=== PATIENT | male | born 1985 | race Caucasian/White ===

== ENCOUNTER 2022-10-26 15:16 | Inpatient (IN) | payer SELFPAY ==
[2022-10-26 15:54] LABS: Absolute Lymphocytes (CBC) 0.9 K/uL (0.7-4.9); Hematocrit 43.6 % (39.6-49.0); Lymphocytes % 5.6 % (15.3-44.8); MCV 88.4 fL (80-100); MPV 7.5 fL (7.6-11.3); RBC Red Blood Cell Count 4.93 M/uL (4.33-5.43)
[2022-10-26] MEDS ORDERED: ACETAMINOPHEN 500 MG TAB ONE (16:01)
[2022-10-26] MEDS ORDERED: MORPHINE 4 MG/ML SYR ONE (16:01)
[2022-10-26] MEDS ORDERED: PIPERACIL/TAZO 3.375 GM VIAL IV ONE (16:02)
[2022-10-26] MEDS ORDERED: FAMOTIDINE 20 MG/2 ML VIAL IV ONE (16:02)
[2022-10-26] MEDS ORDERED: NA CHLORIDE 0.9% 100 ML ONE (16:02)
[2022-10-26] MEDS ORDERED: NA CHLORIDE 0.9% 1,000 ML ONE ×3 (16:02→19:48)
[2022-10-26] MEDS ORDERED: ONDANSETRON 4 MG/2 ML VIAL ONE ×2 (16:02→17:42)
[2022-10-26 16:10] LABS: Specific Gravity 1.025 (1.005-1.030); Urine Bacteria None Seen /HPF (<20); Urine Bilirubin NEGATIVE (Negative); Urine Blood 3+ (OVER) (Negative); Urine Clarity Extremely Turbid (Clear); Urine Color Yellow (Yellow); Urine Glucose NEGATIVE (Negative); Urine Mucus Slight /HPF (None Seen); Urine Protein 3+ (Negative); Urine Urobilinogen 1+ (Normal); Urine WBC Clump Rare /HPF (None Seen)
[2022-10-26 16:20] LABS: Albumin 3.5 g/dL (3.4-5.0); Potassium 3.7 mEq/L (3.5-5.1); Protein, Total 7.8 g/dL (6.4-8.2)
--- NOTE | 2022-10-26 16:22 | RAD REPORT ---
EXAM DESCRIPTION: CTAbdomen Pelvis W Contrast - 10/26/2022 4:04 pm CLINICAL HISTORY: Abdominal pain. ABD PAIN COMPARISON: No comparisons TECHNIQUE: Biphasic CT imaging of the abdomen and pelvis was performed with 100 ml non-ionic IV cont rast. All CT scans are performed using dose optimization technique as appropriate and may include automated exposure control or mA/KV adjustment according to patient size. FINDINGS: The lung bases are clear. The liver contains a 5-6 mm low-density lesion anterior right lobe. Mild nodular contour is present. Spleen, pancreas, adrenal glands and kidneys are within normal limits. No bowel obstruction, free air, free fluid or abscess. The appendix is enlarged to 17 mm with surrou nding inflammation. This is compatible with acute appendicitis. No evidence of significant lymphaden opathy. No suspicious bony findings. IMPRESSION: Acute appendicitis. Subtle nodular liver contour could indicate underlying parenchymal disease.
--- NOTE | 2022-10-26 16:40 | EDPHYS ---
Physician Documentation [facility] Name: Shaggy Colin Age: 36 yrs Sex: Male : 1985 Arrival Date: 10/26/2022 Time: 15:16 Bed 3 Private MD: BEBETO Physician Homar Russell HPI: 10/26 16:21 This 36 yrs old Male presents to ER via Ambulatory with complaints of dc Abdominal Pain, Nausea/Vomiting. 16:21 The patient presents to the emergency department with nausea, vomiting, that is dc continuous. Onset: The symptoms/episode began/occurred 4 day(s) ago. Possible causes: flare up of bowel problem. The symptoms are aggravated by movement, pressure. The symptoms are aggravated by. Associated signs and symptoms: Pertinent positives: abdominal pain. Severity of symptoms: At their worst the symptoms were moderate in the emergency department the symptoms are worse mildly. The patient has not experienced similar symptoms in the past. Historical: - Allergies: 15:26 No Known Allergies; aa5 - Home Meds: 15: None [Active]; aa5 - PMHx: 15: None; aa5 - PSHx: 15:26 None; aa5 - Immunization history:: Adult Immunizations unknown. - Social history:: Smoking status: Patient reports the use of cigarette tobacco products, smokes one pack cigarettes per day. ROS: 16:28 Eyes: Negative for injury, pain, redness, and discharge, ENT: Negative for injury, dc pain, and discharge, Neck: Negative for injury, pain, and swelling, Cardiovascular: Negative for chest pain, palpitations, and edema, Respiratory: Negative for shortness of breath, cough, wheezing, and pleuritic chest pain, Back: Negative for injury and pain, : Negative for injury, bleeding, discharge, and swelling, MS/Extremity: Negative for injury and deformity, Skin: Negative for injury, rash, and discoloration, Neuro: Negative for headache, weakness, numbness, tingling, and seizure, Psych: Negative for depression, anxiety, suicide ideation, homicidal ideation, and hallucinations, Allergy/Immunology: Negative for hives, rash, and allergies, Endocrine: Negative for neck swelling, polydipsia, polyuria, polyphagia, and marked weight changes, Hematologic/Lymphatic: Negative for swollen nodes, abnormal bleeding, and unusual bruising. 16:28 Constitutional: Positive for body aches, chills, fever. 16:28 Cardiovascular: Positive for palpitations. 16:28 Abdomen/GI: Positive for abdominal pain, nausea and vomiting, of the right upper quadrant, left upper quadrant, right lower quadrant and left lower quadrant. Exam: 16:35 Constitutional: This is a well developed, well nourished patient who is awake, alert, dc and in no acute distress. Head/Face: Normocephalic, atraumatic. Eyes: Pupils equal round and reactive to light, extra-ocular motions intact. Lids and lashes normal. Conjunctiva and sclera are non-icteric and not injected. Cornea within normal limits. Periorbital areas with no swelling, redness, or edema. ENT: Nares patent. No nasal discharge, no septal abnormalities noted. Tympanic membranes are normal and external auditory canals are clear. Oropharynx with no redness, swelling, or masses, exudates, or evidence of obstruction, uvula midline. Mucous membranes moist. Neck: Trachea midline, no thyromegaly or masses palpated, and no cervical lymphadenopathy. Supple, full range of motion without nuchal rigidity, or vertebral point tenderness. No Meningismus. Chest/axilla: Normal chest wall appearance and motion. Nontender with no deformity. No lesions are appreciated. Respiratory: Lungs have equal breath sounds bilaterally, clear to auscultation and percussion. No rales, rhonchi or wheezes noted. No increased work of breathing, no retractions or nasal flaring. Back: No spinal tenderness. No costovertebral tenderness. Full range of motion. Male : Normal genitalia with no discharge or lesions. Skin: Warm, dry with normal turgor. Normal color with no rashes, no lesions, and no evidence of cellulitis. MS/ Extremity: Pulses equal, no cyanosis. Neurovascular intact. Full, normal range of motion. Neuro: Awake and alert, GCS 15, oriented to person, place, time, and situation. Cranial nerves II-XII grossly intact. Motor strength 5/5 in all extremities. Sensory grossly intact. Cerebellar exam normal. Normal gait. Psych: Awake, alert, with orientation to person, place and time. Behavior, mood, and affect are within normal limits. 16:35 Cardiovascular: Rate: tachycardic, actual rate is 120 bpm, Rhythm: regular, Pulses: Pulses are 4+ in bilateral radial, brachial, femoral, popliteal, posterior tibial and and dorsalis pedis arteries.. Heart sounds: normal, Edema: is not appreciated, JVD: is not appreciated. 16:35 ECG was reviewed by the Attending Physician. Vital Signs: 15:26 BP 117 / 75; Pulse 120; Resp 28 S; Temp 101(O); Pulse Ox 98% on R/A; Weight 80.74 kg aa5 (R); Height 5 ft. 8 in. (R); 16:19 BP 106 / 66; Pulse 98; Resp 16; Pulse Ox 99% on R/A; db 17:18 BP 112 / 71; Pulse 92; Resp 18; Pulse Ox 98% ; ko1 15:26 Body Mass Index 27.06 (80.74 kg, 172.72 cm) aa5 MDM: 15:30 Patient medically screened. [facility] 16:29 Differential diagnosis: Nonspecific abd pain, pancreatitis, appendicitis, dc diverticulitis, viral gastroenteritis, gastroenteritis. Data reviewed: vital signs, nurses notes, lab test result(s), EKG, radiologic studies, CT scan. Consideration of Admission/Observation Patient was admitted/placed on observation. Escalation of care including admission/observation considered. I considered the following discharge prescriptions or medication management in the emergency department Medications were administered in the Emergency Department. See MAR. Independent interpretation of the following test(s) in the Emergency Department EKG: See my EKG interpretation above. Test considered but Not performed: Ultrasound NO ABD USG. Historians other than the Patient: Spouse/Significant Other: . Care significantly affected by the following chronic conditions: NONE. Care significantly affected by the following Social Determinants of Health: Poor access to healthcare and/or lack of insurance, Poor access to transportation. Counseling: I had a detailed discussion with the patient and/or guardian regarding: the historical points, exam findings, and any diagnostic results supporting the discharge/admit diagnosis, lab results, radiology results, the need for further work-up and treatment in the hospital. 10/26 15:31 Order name: CBC with Diff; Complete Time: 16:16 [facility] 10/26 15:31 Order name: CMP; Complete Time: 16:50 [facility] 10/26 15:31 Order name: Lipase; Complete Time: 16:50 [facility] 10/26 15:31 Order name: Urinalysis w/ reflexes; Complete Time: 16:16 [facility] 10/26 17:19 Order name: Basic Metabolic Panel [facility] 10/26 17:19 Order name: Basic Metabolic Panel [facility] 10/26 17:19 Order name: CBC with Automated Diff [facility] 10/26 17:19 Order name: CBC with Automated Diff [facility] 10/26 17:19 Order name: Lipase [facility] 10/26 17:19 Order name: Lipase [facility] 10/26 17:19 Order name: Liver (Hepatic) Function [facility] 10/26 17:19 Order name: Liver (Hepatic) Function [facility] 10/26 15:31 Order name: CT Abd/Pelvis - IV Contrast Only; Complete Time: 16:50 [facility] 10/26 17:19 Order name: NPO [facility] 10/26 15:31 Order name: IV Saline Lock; Complete Time: 15:49 [facility] 10/26 15:31 Order name: Labs collected and sent; Complete Time: 15:49 [facility] EC:35 Rate is 101 beats/min. Rhythm is regular. QRS [place] is Normal. TX interval is normal. [facility] QRS interval is normal. QT interval is normal. No Q waves. T waves are Normal. No ST changes noted. Clinical impression: Sinus tachycardia and No evidence of ischemia. Interpreted by me. Reviewed by me. Administered Medications: 15:55 Drug: NS 0.9% IV 1000 ml Route: IV; Rate: 1 bolus; Site: right antecubital; db 17:10 Follow up: Response: No adverse reaction; IV Status: Completed infusion; IV Intake: db 1000ml 15:55 Drug: Ondansetron IVP 4 mg Route: IVP; Site: right antecubital; db 17:41 Follow up: Response: No adverse reaction db 15:55 Drug: morphine IVP or IV 4 mg Route: IVP; Infused Over: 4 mins; Site: right antecubital;db 17:41 Follow up: Response: No adverse reaction db 15:55 Drug: Acetaminophen PO 1000 mg Route: PO; db 17:40 Follow up: Response: No adverse reaction db 16:15 Drug: Famotidine IVP 20 mg Route: IVP; Site: right antecubital; db 17:40 Follow up: Response: No adverse reaction db 16:20 Drug: Piperacillin-Tazobactam IVPB 3.375 grams Route: IVPB; Infused Over: 60 mins; db Site: right antecubital; 16:50 Follow up: Response: No adverse reaction; IV Status: Completed infusion; IV Intake: db 100ml 17:16 Drug: NS 0.9% IV 1000 ml Route: IV; Rate: 1 bolus; Site: left antecubital; ko1 17:40 Follow up: IV Status: Infusion continued upon admission db Disposition Summary: 10/26/22 16:40 Hospitalization Ordered Hospitalization Status: Inpatient Admission dc Location: Telemetry/[facility] [place] [place] (Inpatient) dc Condition: Stable dc Problem: new dc Symptoms: have improved dc Bed/Room Type: Standard dc Room Assignment: dc Provider: Jose Melissa(10/26/22 16:42) dc Diagnosis - Abdominal tenderness dc - Acute appendicitis with generalized peritonitis - PERFORATED dc - Fever, unspecified dc - Elevated white blood cell count dc Forms: - Medication Reconciliation Form dc - SBAR form dc Signatures: Dispatcher [employer] EDHomar Lee MD MD cha Calderon, Audri RN RN aa5 Mariana Birmingham RN RN ko1 Lisa Zimmer RN RN db Corrections: (The following items were deleted from the chart) 16:42 16:40 Som Lamar cha dc
--- NOTE | 2022-10-26 16:40 | ER ---
Nurse's Notes [facility] Name: Shaggy Colin Age: 36 yrs Sex: Male : 1985 Arrival Date: 10/26/2022 Time: 15:16 Bed 3 Private MD: Diagnosis: Abdominal tenderness;Acute appendicitis with generalized peritonitis-PERFORATED;Fever, unspecified;Elevated white blood cell count Presentation: 10/26 15:26 Chief complaint: Patient states: RLQ pain that began Monday, nausea and vomiting. aa5 Coronavirus screen: vomiting. Ebola Screen: Patient denies travel to an Ebola-affected area in the 21 days before illness onset. Initial Sepsis Screen: Does the patient meet any 2 criteria? RR > 20 per min. HR > 90 bpm. Yes Does the patient have a suspected source of infection? Yes: Acute abdominal pain. Risk Assessment: Do you want to hurt yourself or someone else? Patient reports no desire to harm self or others. Onset of symptoms was October 2022. 15:26 Acuity: MELQUIADES 2 aa5 15:26 Method Of Arrival: Ambulatory aa5 Historical: - Allergies: 15:26 No Known Allergies; aa5 - Home Meds: 15:26 None [Active]; aa5 - PMHx: 15:26 None; aa5 - PSHx: 15:26 None; aa5 - Immunization history:: Adult Immunizations unknown. - Social history:: Smoking status: Patient reports the use of cigarette tobacco products, smokes one pack cigarettes per day. Screenin:33 [facility] ED Fall Risk Assessment (Adult) History of falling in the last 3 months, db including since admission No falls in past 3 months (0 pts) Confusion or Disorientation No (0 pts) Intoxicated or Sedated No (0 pts) Impaired Gait No (0 pts) Mobility Assist Device Used No (0 pt) Altered Elimination No (0 pt) Score/Fall Risk Level 0 - 2 = Low Risk Oriented to surroundings, Maintained a safe environment. 17:18 Abuse screen: Denies threats or abuse. Denies injuries from another. Nutritional ko1 screening: No deficits noted. Tuberculosis screening: No symptoms or risk factors identified. Assessment: 16:00 Reassessment: Patient appears in no apparent distress at this time. Patient and/or db family updated on plan of care and expected duration. Pain level reassessed. Patient is alert, oriented x 3, equal unlabored respirations, skin warm/dry/pink. General: Appears in no apparent distress. comfortable, Behavior is calm, cooperative. Pain: Complains of pain in abdomen. Neuro: Level of Consciousness is awake, alert, obeys commands, Oriented to person, place, time, situation. GI: Bowel sounds present X 4 quads. Abd is soft Abdomen is tender to palpation X 4 quads. Abdomen has rebound tenderness. Vital Signs: 15:26 BP 117 / 75; Pulse 120; Resp 28 S; Temp 101(O); Pulse Ox 98% on R/A; Weight 80.74 kg aa5 (R); Height 5 ft. 8 in. (R); 16:19 BP 106 / 66; Pulse 98; Resp 16; Pulse Ox 99% on R/A; db 17:18 BP 112 / 71; Pulse 92; Resp 18; Pulse Ox 98% ; ko1 15:26 Body Mass Index 27.06 (80.74 kg, 172.72 cm) aa5 ED Course: 15:19 Patient arrived in ED. im 15:26 Arm band placed on. aa5 15:27 Triage completed. aa5 15:30 Homar Russell MD is Attending Physician. dc 15:44 Lisa Zimmer, ANCA is Primary Nurse. db 15:49 Inserted saline lock: 20 gauge in right antecubital area, using aseptic technique. sm8 Blood collected. 15:49 Initial lab(s) drawn, by ut, sent to lab. sm8 16:04 Urinalysis w/ reflexes Sent. ls5 16:05 CT Abd/Pelvis - IV Contrast Only In Process Unspecified. EDMS 16:38 Som Lamar is Hospitalizing Provider. dc 16:42 Jose Melissa MD is Hospitalizing Provider. dc 17:18 Patient has correct armband on for positive identification. Placed in gown. Bed in low ko1 position. Call light in reach. Side rails up X 1. Provided Education on: Surgical Consent. Client placed on continuous cardiac and pulse oximetry monitoring. NIBP monitoring applied. hydraulic miner on. Door closed. Noise minimized. Warm blanket given. 17:18 No provider procedures requiring assistance completed. Patient admitted, IV remains in ko1 place. Administered Medications: 15:55 Drug: NS 0.9% IV 1000 ml Route: IV; Rate: 1 bolus; Site: right antecubital; db 17:10 Follow up: Response: No adverse reaction; IV Status: Completed infusion; IV Intake: db 1000ml 15:55 Drug: Ondansetron IVP 4 mg Route: IVP; Site: right antecubital; db 17:41 Follow up: Response: No adverse reaction db 15:55 Drug: morphine IVP or IV 4 mg Route: IVP; Infused Over: 4 mins; Site: right antecubital;db 17:41 Follow up: Response: No adverse reaction db 15:55 Drug: Acetaminophen PO 1000 mg Route: PO; db 17:40 Follow up: Response: No adverse reaction db 16:15 Drug: Famotidine IVP 20 mg Route: IVP; Site: right antecubital; db 17:40 Follow up: Response: No adverse reaction db 16:20 Drug: Piperacillin-Tazobactam IVPB 3.375 grams Route: IVPB; Infused Over: 60 mins; db Site: right antecubital; 16:50 Follow up: Response: No adverse reaction; IV Status: Completed infusion; IV Intake: db 100ml 17:16 Drug: NS 0.9% IV 1000 ml Route: IV; Rate: 1 bolus; Site: left antecubital; ko1 17:40 Follow up: IV Status: Infusion continued upon admission db Medication: 17:18 VIS not applicable for this client. ko1 Intake: 16:50 IV: 100ml; Total: 100ml. db 17:10 IV: 1000ml; Total: 1100ml. db Outcome: 16:40 Decision to Hospitalize by Provider. dc 17:18 Admitted to OR accompanied by nurse. ko1 17:30 Patient left the ED. ko1 17:41 Condition: stable db Signatures: Dispatcher [employer] EDHomar Lee MD MD cha Calderon, Audri RN RN [id number] Mariana Birmingham RN RN Lisa Fowler, RN RN Mekhi Chang5 Latha Paiz Scarlett 8
[2022-10-26] MEDS ORDERED: ONDANSETRON 4 MG/2 ML VIAL IV PRN (17:17)
[2022-10-26] MEDS ORDERED: D5 0.45 NS 1,000 ML IV SCH (17:17)
[2022-10-26] MEDS ORDERED: Ringers Lactate 1,000 ML IV SCH (17:17)
[2022-10-26] MEDS ORDERED: FENTANYL CITR 100 MCG/2 ML ONE (17:41)
[2022-10-26] MEDS ORDERED: propofoL 200 MG/20 ML VIAL IV ONE (17:41)
[2022-10-26] MEDS ORDERED: GLYCOPYRROLATE 0.2 MG/ML SYR ONE (17:41)
[2022-10-26] MEDS ORDERED: MIDAZOLAM HCL 2 MG/2 ML INJ ONE (17:41)
[2022-10-26] MEDS ORDERED: MORPHINE 10 MG/ML VIAL ONE (17:42)
[2022-10-26] MEDS ORDERED: NEOSTIGMINE 1 MG/ML -10 ML VIAL ONE (17:42)
[2022-10-26] MEDS ORDERED: ROCURONIUM 50 MG/5 ML VIAL IV ONE (17:42)
[2022-10-26] MEDS ORDERED: LIDOCAINE 1% MPF 5 ML VIAL ONE (17:43)
[2022-10-26] MEDS ORDERED: dexAMETHasone 4 MG/ML VIAL ONE (17:43)
[2022-10-26] MEDS ORDERED: KETOROLAC 30 MG/ML INJ ONE (17:43)
[2022-10-26] MEDS ORDERED: Ringers Lactate 1,000 ML IV ONE (17:50)
[2022-10-26] MEDS ORDERED: NA CIT/CITRIC AC 30 ML ORAL UDC ONE (17:51)
--- NOTE | 2022-10-26 17:54 | HP ---
Date of Admission: 10/26/2022 Diagnoses: Acute appendicitis, peritonitis. History Of Present Illness: This is the case of a 36-year-old patient, who comes to us with 4 days' history of right lower quadrant pain, nausea, vomiting associated with it. The patient comes today w ith intractable abdominal pain, peritonitis. The patient was seen in the ER and a surgical consult w as obtained after CAT scan shows acute appendicitis. There was fluid collection in that area, ruptur e cannot be ruled out. The patient has history of a family member with a ruptured appendix that is a n almost cause in his life. So, he is concerned about it. He said at the beginning he thought it wa s just a minor ache and it kept coming back and forth, back and forth until today day #4 and he shows with intractable abdominal pain. He denies any trauma. He denies any dysuria, hematuria, hematoche anjana, melena. He denies any recent traveling out of the country. He denies any family member sick at home. Allergies: NONE. Medications: None. Past Medical History: None. Past Surgical History: Surgeries none. Social History: He does not drink alcohol. He smokes 1 pack of cigarettes a day. The patient couns eled about the smoking cessation. Review of Systems: Abdominal pain, nausea, vomiting, fever, chills, body aches. Physical Examination: General: The patient is awake, alert. HEENT: Pupils are equal and reactive. Anicteric. Neck: Supple. Chest: Clear. Abdomen: Severe abdominal pain with peritonitis, distention, guarding and rebound present. Rectal: Deferred. Extremities: Good capillary refill. Neurologic: Cranial nerves 2 through 12 grossly within normal limits. Laboratory Data: Blood work reviewed. White count of 15. Sodium is 132. CAT scan of the abdomen a nd pelvis shows acute appendicitis. Assessment: A 36-year-old patient with peritonitis, acute appendicitis, distended abdomen, guarding, and rebound. The patient will be taken immediately for surgery. The benefits, alternatives, and ri sks of laparoscopic possible open appendectomy fully explained, which include, but not limited to inf ection, bleeding, damage to adjacent structures, anesthesia complication, intra-abdominal abscess, TX , and even . He also understands this may not relieve any symptoms. He might need more than on e surgical intervention. The OR was immediately called. WEI Voice ID: [id number]
[2022-10-26] MEDS ORDERED: HYDROMORPHONE HCL 1 MG/ML INJ IV PRN (19:14)
--- NOTE | 2022-10-26 19:14 | P.BOP ---
Preoperative diagnosis: peritonitis, perforated acute appendicitis, intrabdominal abscess Postoperative diagnosis: same Primary procedure: Laparoscopic appendectomy of perforated acute appendicitis Secondary procedure: Laparoscopic drainage of intrabdominal abscess Estimated blood loss: <10cc Specimen: intrabdominal abscess/pus culture, appendix Findings: peritonitis, perforated acute appendicitis, intrabdominal abscess Anesthesia: General Complications: None Drain(s): REDD drain Transferred to: Recovery Room Condition: Fair
[2022-10-26] MEDS: NA CHLORIDE 0.9% 1,000 ML IV SCH (20:28)
[2022-10-26] MEDS: FAMOTIDINE 20 MG/2 ML VIAL IV SCH (20:28)
[2022-10-26] MEDS: ONDANSETRON 4 MG/2 ML VIAL IV PRN (21:49)
[2022-10-26 22:11] VITALS: BMI 28.3
[2022-10-27] MEDS ORDERED: PIPER TAZO 3.375 GM in NA CHLORIDE 0.9% 100 ML IV SCH (01:00)
[2022-10-27] MEDS: PIPER TAZO 3.375 GM in NA CHLORIDE 0.9% 100 ML IV SCH ×3 (03:37→16:20)
[2022-10-27] MEDS: MORPHINE 4 MG/ML SYR IV PRN ×2 (03:49→20:50)
[2022-10-27] MEDS: ONDANSETRON 4 MG/2 ML VIAL IV PRN ×2 (03:49→20:50)
[2022-10-27 03:56] LABS: Absolute Lymphocytes (CBC) 0.4 K/uL (0.7-4.9); Hematocrit 37.1 % (39.6-49.0); Lymphocytes % 2.9 % (15.3-44.8); MCV 89.6 fL (80-100); MPV 7.9 fL (7.6-11.3); RBC Red Blood Cell Count 4.14 M/uL (4.33-5.43)
[2022-10-27] MEDS: NA CHLORIDE 0.9% 1,000 ML IV SCH ×3 (04:00→16:19)
[2022-10-27 04:10] LABS: Albumin 2.6 g/dL (3.4-5.0); Bilirubin Direct 0.3 mg/dL (0-0.2); Bilirubin Indirect, Calculated 0.5 mg/dL (0.2-0.8); Bilirubin Total 0.8 mg/dL (0.2-1.0); Potassium 4.8 mEq/L (3.5-5.1)
--- NOTE | 2022-10-27 04:36 | OP ---
Date of Procedure: 10/26/2022 Surgeon: Jose Melissa MD Diagnoses: Peritonitis, perforated acute appendicitis, intraabdominal abscess. Postop Diagnoses: Peritonitis, perforated acute appendicitis, intraabdominal abscess. Procedure: 1.Laparoscopic appendectomy of perforated acute appendicitis. 2.Laparoscopic drainage of intraabdominal abscess. Estimated Blood Loss: Less than 10 cc. Specimen: Intraabdominal abscess culture and also appendix. Findings: Patient had a perforated gangrenous appendix, distal half was embedded into an abscess are a located in the right lower quadrant. Peritonitis present. Anesthesia: General plus local. Indication: This is a case of a 36-year-old patient comes to us with peritonitis, leukocytosis, rigi d abdomen, so the patient diagnosed with appendicitis. The benefits, alternatives, and risks of a la paroscopic possible open appendectomy with possible drainage of an abscess fully explained, which inc lude, but not limited to infection, bleeding, damage to adjacent structures, anesthesia complication, intraabdominal abscess, MN, and . He also understands this may not relieve any symptoms. He m ight need more than one surgical intervention. He understands this is better since his brother caryn camargo from a perforated appendicitis that required laparotomy, some multiple weeks of intensive care . He signed a consent. The OR was immediately called. The patient brought to the operating room, p laced supine position, anesthesia was done without complication. Abdominal area was prepped and drap ed in usual sterile fashion. Local anesthesia was applied followed by sharp incision of the skin in the infraumbilical region. Incision was carried down to fascia, which was opened under direct vision . Peritoneum was encountered, opened under direct vision. Vicryl #1 placed inside the fascia. Himanshu on trocar was carefully introduced. No bleeding was obtained. Immediately, we noticed the inflammat ory process in the right lower quadrant, so we put a 5 mm trocar in the suprapubic and other one in t he left lower quadrant area under direct visualization. This helped me evaluate the area of the righ t lower quadrant. We noticed the to be in embedded in an abscess. Carefully the abscess w as drained, cultured. Suction was done of the purulent discharge. Appendix was identified. It seem s like half of the appendix distally is gangrenous, but the base of the appendix seems to be spared, so after removing some adhesions from that area, we were able to mobilize partially the white lines o f [place]t with the help of a LigaSure and then transect the base of appendix with the Endo-VAUGHN 45 mm no nvascular. The mesoappendix was transected with the help of LigaSure. Appendix removed from abdomin al cavity and sent to the pathologist. Profuse irrigation of the abdomen was done with at least 6 L of fluid until clear. We checked for hemostasis. I then placed 2 REDD #10, so 1 in the suprapubic ar ea opening and also to the left lower quadrant opening. They were secured in place with 3-0 nylon. After checking the area once again, we proceeded then to a deflated pneumoperitoneum, closed the fasc ia with #1 Vicryl, irrigated the subcutaneous tissue, approximated the skin. Sponge count and instru ment count correct. Patient tolerated the procedure well. Patient sent to recovery in fair, stable condition. We expect the patient to develop ileus, to develop a long stay in the hospital with least several days of IV antibiotics. We discussed that with the patient and family in advance. They als o understands that we might have to take him to surgery again if he develops intraabdominal abscess. They understood. NAHOMY/PRESTON Voice ID: [id number] Report ID: [id number]
[2022-10-27 04:43] LABS: Blood Morphology Comment NOTED (NOT SEEN); Burr Cells 2+; Platelet Estimate ADEQ
[2022-10-27] MEDS: FAMOTIDINE 20 MG/2 ML VIAL IV SCH ×2 (09:18→20:50)
[2022-10-27] MEDS: PANTOPRAZOLE 40 MG INJ IVP SCH (09:18)
[2022-10-27] MEDS: ACETAMINOPHEN 500 MG TAB PO PRN (10:54)
--- NOTE | 2022-10-27 13:19 | P.PN ---
Subjective Date of Service: 10/27/22 Chief Complaint: peforated acute appendicitis with intrabdominal abscess, peritonits Subjective: No new changes Review of Systems General: Weakness Eyes: Unremarkable ENT: Unremarkable Respiratory: Unremarkable Cardiovascular: Unremarkable Gastrointestinal: Distention Genitourinary: Unremarkable Musculoskeletal: Unremarkable Neurological: Unremarkable Physical Examination - Vital Signs Temperature: 98.3 F Blood Pressure: 111/59 Pulse: 65 Respirations: 20 Pulse Ox (%): 97 - Physical Exam General: Alert, In no apparent distress, Oriented x3, Cooperative HEENT: Normocephalic, PERRLA Neck: Supple Respiratory: Normal air movement Cardiovascular: No edema, Normal pulses Gastrointestinal: Absent bowel sounds, Distended Musculoskeletal: No erythema, No tenderness, No warmth Integumentary: No rashes, No breakdown, No erythema, No warmth, No cyanosis Neurological: Normal speech - Studies Laboratory Data (last 24 hrs) 10/26/22 15:43: Sodium 132 L, Potassium 3.7, BUN 15, Creatinine 1.17, Glucose 105, Total Bilirubin 1.0, AST 53 H, ALT 51, Alkaline Phosphatase 83, Lipase 23 10/26/22 15:43: WBC 15.20 H, Hgb 14.9, Hct 43.6, Plt Count 198 Assessment And Plan - Plan IVF SCD OOB cont iv ABX f/U CULTURE npo
--- NOTE | 2022-10-27 13:21 | EKG ---
Test Date: 2022-10-26 Test Time: 15:41:33 Pamphlet Distributor: ROCHELLE MEASUREMENT RESULTS: Intervals: Rate: 101 CO: 120 QRSD: 78 QT: 294 QTc: 381 [place]: P: 79 CO: 120 QRS: 74 T: 53 INTERPRETIVE STATEMENTS: Sinus tachycardia Otherwise normal ECG No previous ECG available for comparison Electronically Signed On 10-27-22 13:19:29 CDT by Jagjit Fermin
[2022-10-27] MEDS: SODIUM CHLORIDE 0.9% 10ML INJ IV PRN (20:50)
[2022-10-28] MEDS: NA CHLORIDE 0.9% 1,000 ML IV SCH ×3 (01:58→20:32)
[2022-10-28] MEDS: PIPER TAZO 3.375 GM in NA CHLORIDE 0.9% 100 ML IV SCH ×3 (01:59→16:49)
[2022-10-28] MEDS: FAMOTIDINE 20 MG/2 ML VIAL IV SCH ×2 (09:04→20:31)
[2022-10-28] MEDS: PANTOPRAZOLE 40 MG INJ IVP SCH (09:04)
[2022-10-28] MEDS: MORPHINE 4 MG/ML SYR IV PRN ×2 (09:06→20:32)
[2022-10-28] MEDS: ACETAMINOPHEN 500 MG TAB PO PRN (16:48)
[2022-10-28] MEDS: ONDANSETRON 4 MG/2 ML VIAL IV PRN (20:31)
[2022-10-28] MEDS: SODIUM CHLORIDE 0.9% 10ML INJ IV PRN (20:32)
[2022-10-29] MEDS: PIPER TAZO 3.375 GM in NA CHLORIDE 0.9% 100 ML IV SCH ×3 (00:57→16:52)
[2022-10-29] MEDS: NA CHLORIDE 0.9% 1,000 ML IV SCH ×4 (03:54→20:41)
[2022-10-29] MEDS: MORPHINE 4 MG/ML SYR IV PRN ×3 (04:47→21:13)
[2022-10-29] MEDS: ONDANSETRON 4 MG/2 ML VIAL IV PRN ×3 (04:47→21:13)
[2022-10-29] MEDS: FAMOTIDINE 20 MG/2 ML VIAL IV SCH ×2 (08:19→20:39)
[2022-10-29] MEDS: PANTOPRAZOLE 40 MG INJ IVP SCH (08:19)
[2022-10-29 22:55] VITALS: O2SAT 96
[2022-10-30] MEDS: PIPER TAZO 3.375 GM in NA CHLORIDE 0.9% 100 ML IV SCH ×3 (01:04→16:32)
[2022-10-30] MEDS: MORPHINE 4 MG/ML SYR IV PRN ×2 (04:57→14:51)
[2022-10-30] MEDS: ONDANSETRON 4 MG/2 ML VIAL IV PRN ×2 (04:57→14:51)
[2022-10-30] MEDS: PANTOPRAZOLE 40 MG INJ IVP SCH (08:57)
[2022-10-30] MEDS: FAMOTIDINE 20 MG/2 ML VIAL IV SCH ×2 (08:57→20:14)
[2022-10-30] MEDS: NA CHLORIDE 0.9% 1,000 ML IV SCH (08:57)
--- NOTE | 2022-10-30 23:20 | P.PN ---
Subjective Date of Service: 10/30/22 Chief Complaint: peforated acute appendicitis with intrabdominal abscess, peritonits Subjective: Tolerating diet, Ambulating, Improving Review of Systems Respiratory: Unremarkable Cardiovascular: Unremarkable Gastrointestinal: Abdominal Pain Genitourinary: Unremarkable Musculoskeletal: Unremarkable Physical Examination - Vital Signs Temperature: 97.9 F Blood Pressure: 103/68 Pulse: 74 Respirations: 18 Pulse Ox (%): 96 - Physical Exam General: Alert, In no apparent distress, Oriented x3, Cooperative HEENT: Normocephalic, PERRLA Neck: Supple Respiratory: Normal air movement Cardiovascular: No edema Gastrointestinal: Soft and benign Musculoskeletal: No erythema, No tenderness, No warmth Integumentary: No rashes, No breakdown, No erythema, No warmth - Studies Microbiology Data (last 24 hrs): reviewed Assessment And Plan - Plan IVF SCD OOB cont iv ABX d/c REDD tomorrow advance diet
[2022-10-31] MEDS: PIPER TAZO 3.375 GM in NA CHLORIDE 0.9% 100 ML IV SCH ×2 (00:16→07:58)
[2022-10-31] MEDS: ONDANSETRON 4 MG/2 ML VIAL IV PRN ×2 (00:17→11:14)
[2022-10-31] MEDS: MORPHINE 4 MG/ML SYR IV PRN ×2 (00:17→11:14)
[2022-10-31] MEDS: NA CHLORIDE 0.9% 1,000 ML IV SCH (03:35)
[2022-10-31 04:02] LABS: Absolute Lymphocytes (CBC) 1.3 K/uL (0.7-4.9); Hematocrit 35.8 % (39.6-49.0); Lymphocytes % 18.6 % (15.3-44.8); MPV 7.6 fL (7.6-11.3); RBC Red Blood Cell Count 4.02 M/uL (4.33-5.43)
[2022-10-31] MEDS: FAMOTIDINE 20 MG/2 ML VIAL IV SCH (07:59)
[2022-10-31] MEDS: PANTOPRAZOLE 40 MG INJ IVP SCH (07:59)
[2022-10-31 08:56] VITALS: BP 105/65; TEMP 98.1
--- NOTE | 2022-10-31 11:14 | P.DS ---
Admission Date: 10/26/22 Discharge Date: 10/31/22 Disposition: ROUTINE DISCHARGE Reason for Admission: peforated acute appendicitis with intrabdominal abscess, peritonits Brief History of Present Illness: see hpi Hospital Course: unremarkable Vital Signs/Physical Exam: Temp Pulse Resp BP Pulse Ox 98.1 F 63 20 105/65 95 10/31/22 08:00 10/31/22 08:00 10/31/22 08:00 10/31/22 08:00 10/31/22 08:00 General: Alert, In no apparent distress, Oriented x3, Cooperative HEENT: PERRLA Neck: Supple Respiratory: Normal air movement Cardiovascular: No edema, Normal pulses, No gallops, No rubs, No murmurs Gastrointestinal: Normal bowel sounds, Soft and benign, No masses, No rebound, No guarding, Other (Juanito serosanguineous, one ot then removed today by me.) Integumentary: No rashes, No breakdown, No erythema, No warmth, No cyanosis Neurological: Normal speech Laboratory Data at Discharge: WBC 6.70 thou/uL (4.3-10.9) 10/31/22 02:15 Hgb 12.1 g/dL (13.6-17.9) L 10/31/22 02:15 Hct 35.8 % (39.6-49.0) L 10/31/22 02:15 Plt Count 264 thou/uL (152-406) 10/31/22 02:15 Sodium 135 mEq/L (136-145) L 10/27/22 03:18 Potassium 4.8 mEq/L (3.5-5.1) D 10/27/22 03:18 BUN 16 mg/dL (7-18) 10/27/22 03:18 Creatinine 1.05 mg/dL (0.70-1.30) 10/27/22 03:18 Glucose 147 mg/dL (74-106) H 10/27/22 03:18 Total Bilirubin 0.8 mg/dL (0.2-1.0) 10/27/22 03:18 AST 36 U/L (15-37) 10/27/22 03:18 ALT 36 U/L (16-61) 10/27/22 03:18 Alkaline Phosphatase 61 U/L (45-117) D 10/27/22 03:18 Lipase 41 U/L (13-75) 10/27/22 03:18 Home Medications: NK [No Home Meds] 10/26/22 Physician Discharge Instructions: OOB IS continue PO abx at home MAy take a shower with dressing off Diet: AHA Activity: No lifting more than 10 lbs Followup: AKBAR WEBBER [Primary Care Provider] - Jose Melissa MD [ACTIVE - CAN ADMIT] - 11/04/22
== END 2022-10-31 13:23 | disposition home or self-care (01) | DRG 340 ==
LOC: ER 15:16 → ERHOLD 16:44 → 2ND 18:25
PROVIDERS: ADMIT Surgery; ATTEND Surgery
PROC: 0W9F4ZZ Drainage of Abdominal Wall, Percutaneous Endoscopic Approach (ICD-10-PCS; 2022-10-26)
PROC: 0DTJ4ZZ Resection of Appendix, Percutaneous Endoscopic Approach (ICD-10-PCS; principal; 2022-10-26 18:00)
DX: K35.33 Acute appendicitis with perforation, localized peritonitis, and gangrene, with abscess (principal); F17.210 Nicotine dependence, cigarettes, uncomplicated; Z71.6 Tobacco abuse counseling
CPT/HCPCS: 36415; 74177; 80048; 80053; 80076; 81001; 83690; 85025; 87070; 87075; 87077; 87185; 87186; 87205; 88304; 93005; 96361; 96365; 96375; 97161; 99285; C9113; J1100; J2001; J2250; J2405; J2543; J2704; J2710; J3010; J7030; J7120; Q9967